=== PATIENT | male | born 1980 | race Caucasian/White ===

== ENCOUNTER 2020-05-14 05:36 | Inpatient (IN) ==
--- NOTE | 2020-05-14 05:52 | Emergency Department Note ---
History of Present Illness General Chief complaint: Syncope Stated complaint: SYNCOPE Time Seen by Provider: 05/14/20 05:45 Source: patient and EMS Mode of arrival: EMS Limitations: altered mental status History of Present Illness Provider complaint: Unresponsive episode Onset (ago): hour(s) Current Pain Intensity: 0 Associated symptoms: + denies other symptoms Treatments prior to arrival: none This is a 40-year-old male brought in by EMS after he had a syncopal event at a [employer]und[employer]at witnessed by a friend. The friend reported to EMS that he was "out of it" for 3 minutes. He did not notice any shaking or seizure-like activity. When police arrived, police told EMS it took him several minutes to wake him up, and he seemed altered so they contacted EMS. EMS reports he was awake and alert on their arrival although does still seem altered. Patient states he remembers sitting down, but does not believe he passed out. Patient denies any recent illness. Patient does state he was recently incarcerated. Patient denies any medical problems or taking any medications. Patient states he smokes weed but denies any other use of recreational drugs or alcohol. Patient was noted by EMS to be mildly hypoxic at 89% was placed on nasal cannula. Patient denies any history of asthma or COPD. Patient does admit to tobacco abuse. Patient denies any recent sick contacts. Patient states he was tested for coronavirus when he was incarcerated. Patient denies any history in him or family members of seizures. Pt seen during a time of high acuity and national emergency pandemic while wea ring PPE. Home Medications Medication Instructions Recorded Confirmed Type No Known Home Medications 02/11/19 05/14/20 History Allergies Allergy/AdvReac Type Severity Reaction Status Date / Time No Known Allergies Allergy Verified 05/14/20 06:20 Past Med/Surg History Medical History (Updated 05/14/20 @ 12:27 by Qasim Quezada MD) Narcotic abuse in remission Surgical History (Updated 05/14/20 @ 10:26 by Leon Diaz) No history of previous surgery Family History Father Dementia Social History (Updated 05/14/20 @ 10:27 by Leon Diaz) Smoking Status: Current every day smoker Tobacco Type: Cigarettes Cigarettes Per Day: 10; Hx Alcohol Use: No Hx Substance Use: Yes Non-Prescribed Medications: Marijuana Last Used Substance: Hours (ago) Last Used Substance Other:: uses THC daily, 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 and A total of 10 systems reviewed and were otherwise negative Physical Exam Vital Signs Vital Signs - 24 hr 05/14/20 06:20 05/14/20 07:34 05/14/20 08:17 Temperature 36.9 C Temperature Source Oral Pulse Rate 115 H Pulse Rate [Apical] 130 H Pulse Rhythm Regular Pulse Strength Normal Respiratory Rate 12 18 Respiratory Effort / Characteristics Non-Labored Spontaneous Respiratory Depth Normal Respiratory Pattern Regular Blood Pressure 126/86 Blood Pressure [Left Arm] 117/104 H Blood Pressure Mean 99 Blood Pressure Mean [Left Arm] 108 Blood Pressure Position Lying Pulse Oximetry 80 L 88 L 93 Oxygen Delivery Method Room Air Room Air Room Air Oxygen Flow Rate 7 Sepsis Recent Fever Within 48 Hours No Sepsis New/Unexplained Change in Mental Status No Sepsis Action Taken by Nursing No Action Required Oxygen Flow Rate - Titration 6 Pulse Oximetry Post Tiitration 96 05/14/20 08:31 05/14/20 10:00 Temperature Temperature Source Pulse Rate Pulse Rate [Apical] 132 H 120 H Pulse Rhythm Pulse Strength Respiratory Rate 20 18 Respiratory Effort / Characteristics Spontaneous Respiratory Depth Respiratory Pattern Blood Pressure Blood Pressure [Left Arm] 148/101 H Blood Pressure Mean Blood Pressure Mean [Left Arm] 116 Blood Pressure Position Pulse Oximetry 91 95 Oxygen Delivery Method Room Air Room Air Oxygen Flow Rate Sepsis Recent Fever Within 48 Hours Sepsis New/Unexplained Change in Mental Status Sepsis Action Taken by Nursing Oxygen Flow Rate - Titration Pulse Oximetry Post Tiitration GENERAL: alert, somnolent appearing, well nourished, no distress, diaphoretic HEAD: nc/at EYE EXAM: normal conjunctiva, PERRL and EOM's grossly intact, no nystagmus OROPHARYNX: no exudate, no erythema, lips, buccal mucosa, and tongue normal and mucous membranes are moist, no evidence of tongue contusion NECK: supple, no nuchal rigidity, no adenopathy, non-tender LUNGS: Clear but decreased to auscultation. Normal chest wall mechanics, no w/r/r, patient desats when asleep on room air to 80%, was placed on oxygen via nasal cannula HEART: no murmurs, S1 normal and S2 normal, sinus tachycardia on telemetry ABDOMEN: abdomen soft, non-tender, normo-active bowel sounds, no masses, no rebound or guarding. BACK: Back is symmetrical on inspection and there is no deformity, no midline tenderness, no CVA tenderness. SKIN: no rashes and no bruising UPPER EXTREMITIES: upper extremities are grossly normal. FROM, nml pulses b/l. No evidence of trauma. LOWER EXTREMITIES: No pitting edema. FROM, nml pulses b/l. No evidence of trauma. NEURO EXAM: Patient oriented but somnolent when not being engaged actively, cranial nerves II-XII grossly intact, normal speech, no gross weakness of arms, no weakness of legs. Gross sensation intact. Course Course 0715: Pt still hypoxic off oxygen, intermittently agitated, still diaphoretic a nd tachycardic. 0820: Pt now with improved oxygenation intermittently, still becomes hypoxic with talking. Still tachycardic. 0840: Patient still tachycardic in the 130s. Patient with slightly improved oxygen saturations after neb treatment although with talking to me at bedside, drops again to 86%. Patient continues to deny any additional drug use other than marijuana. Patient is receiving IV fluids. He continues to intermittently appear restless and agitated. 0900: Discussed with Dr. Diaz. Would like COVID testing added to orders. UDS still pending. Administered Medications Enoxaparin Sodium (Enoxaparin Inj 40 Mg/0.4 Ml Syr) 40 mg SQ Q24H BLADIMIR Stop: 06/13/20 12:15 Last Admin: 05/14/20 13:31 Dose: 40 mg Documented by: [id number] Sodium Chloride (Nss 1000ml) 1,000 mls @ 125 mls/hr IV .Q8H BLADIMIR Stop: 06/13/20 07:44 Last Admin: 05/14/20 20:12 Dose: 125 mls/hr Documented by: [id number] Infusion: 05/14/20 20:12 Dose: 125 mls/hr Documented by: [id number] Admin: 05/14/20 12:56 Dose: 125 mls/hr Documented by: [id number] Infusion: 05/14/20 12:56 Dose: 125 mls/hr Documented by: [id number] Admin: 05/14/20 08:12 Dose: 125 mls/hr Documented by: [id number] Famotidine 20 mg/ Syringe 5 mls @ 2.5 mls/min IV Q12H BLADIMIR Stop: 06/13/20 20:59 Last Admin: 05/14/20 20:12 Dose: 2.5 mls/min Documented by: [id number] Dexmedetomidine HCl 200 mcg/ (Sodium Chloride) 50 mls @ 11.65 mls/hr IV .Q4H18M BLADIMIR; Protocol Stop: 05/18/20 12:29 Last Admin: 05/14/20 22:25 Dose: 0.5 mcg/kg/hr, 11.7 mls/hr Documented by: [id number] Cosigned by: [id number] Titration: 05/14/20 22:25 Dose: 0 mcg/kg/hr, 0 mls/hr Documented by: [id number] Cosigned by: [id number] Admin: 05/14/20 19:45 Dose: 0.5 mcg/kg/hr, 11.7 mls/hr Documented by: [id number] Cosigned by: [id number] Titration: 05/14/20 19:45 Dose: 0.5 mcg/kg/hr, 11.7 mls/hr Documented by: [id number] Cosigned by: [id number] Titration: 05/14/20 18:52 Dose: 0.5 mcg/kg/hr, 11.7 mls/hr Documented by: [id number] Cosigned by: [id number] Titration: 05/14/20 17:59 Dose: 0.5 mcg/kg/hr, 11.7 mls/hr Documented by: [id number] Titration: 05/14/20 17:44 Dose: 0.4 mcg/kg/hr, 9.3 mls/hr Documented by: [id number] Titration: 05/14/20 17:30 Dose: 0.3 mcg/kg/hr, 7 mls/hr Documented by: [id number] Titration: 05/14/20 15:05 Dose: 0.2 mcg/kg/hr, 4.7 mls/hr Documented by: [id number] Titration: 05/14/20 13:21 Dose: 0.3 mcg/kg/hr, 7 mls/hr Documented by: [id number] Admin: 05/14/20 12:55 Dose: 0.2 mcg/kg/hr, 4.7 mls/hr Documented by: [id number] Cosigned by: [id number] Lorazepam (Ativan) 4 mg in 8 mls @ 0.5 mls/min IV Q4H PRN PRN Reason: Agitation Stop: 06/13/20 12:25 Last Admin: 05/14/20 18:02 Dose: 0.5 mls/min Documented by: [id number] Admin: 05/14/20 13:03 Dose: 0.5 mls/min Documented by: [id number] Discontinued Medications Albuterol (Albut/Ipratrop 3mg/0.5mg Neb 3 Ml Vial) 3 ml NEB NOW STA Stop: 05/14/20 07:35 Last Admin: 05/14/20 08:31 Dose: 3 ml Documented by: [id number] Famotidine (Famotidine 20mg/5ml Iv Push) 20 mg IV ONE STA Stop: 05/14/20 09:06 Last Admin: 05/14/20 11:42 Dose: Not Given Documented by: [id number] Lorazepam (Ativan) 1 mg in 2 mls @ 2 mls/min IV Q4H PRN PRN Reason: Agitation Stop: 06/13/20 07:32 Last Admin: 05/14/20 07:42 Dose: 2 mls/min Documented by: [id number] Lorazepam (Ativan) 1 mg in 2 mls @ 2 mls/min IV NOW STA Stop: 05/14/20 08:51 Last Admin: 05/14/20 09:02 Dose: 2 mls/min Documented by: [id number] Lorazepam (Ativan) 1 mg in 2 mls @ 2 mls/min IV NOW STA Stop: 05/14/20 10:08 Last Admin: 05/14/20 10:33 Dose: 2 mls/min Documented by: [id number] Ioversol (Optiray 320 125ml) 89 ml IV ONCE ONE Stop: 05/14/20 08:08 Last Admin: 05/14/20 08:07 Dose: 89 ml Documented by: [id number] Ondansetron HCl (Ondansetron Inj 2 Mg/Ml 2 Ml Vial) 4 mg IV NOW STA Stop: 05/14/20 09:06 Last Admin: 05/14/20 11:42 Dose: Not Given Documented by: [id number] Medical Decision Making Differential Diagnosis Differential diagnoses includes but is not limited to toxic, metabolic, infectious, traumatic, cardiac, neurologic, hematologic, psychiatric and inflammatory etiologies. Medical Records Attestation: I reviewed the patient's medical records. Home Medications Current Medication List: was personally reviewed by me Laboratory Data Attestation: I reviewed the patient's lab results. Result diagrams: 05/14/20 05:58 05/14/20 05:58 Lab Results 05/14/20 05/14/20 05/14/20 Range/Units 05:58 05:58 05:58 WBC 13.77 H (4.8-10.8) K/uL RBC 5.21 (4.7-6.1) M/uL Hgb 15.3 (14.0-18.0) g/dL Hct 46.0 (42-52) % MCV 88.3 (80-100) fL MCH 29.4 (25-34) pg MCHC 33.3 (32-36) g/dL RDW Std Deviation 41.2 (36.4-46.3) fL RDW Coeff of Franc 12.7 (11.5-14.5) % Plt Count 208 (130-400) K/uL MPV 11.5 H (7.4-10.4) fL Immature Gran % (Auto) 0.5 % Neut % (Auto) 86.7 % Lymph % (Auto) 6.5 % [place] % (Auto) 5.8 % Eos % (Auto) 0.4 % Baso % (Auto) 0.1 % Neut # (Auto) 11.93 H (1.4-6.5) K/uL Lymph # (Auto) 0.89 L (1.2-3.4) K/uL [place] # (Auto) 0.80 H (0.11-0.59) K/uL Eos # (Auto) 0.06 (0-0.5) K/uL Baso # (Auto) 0.02 (0-0.2) K/uL Immature Gran # (Auto) 0.07 H (0.00-0.02) K/uL Sodium 139 (136-145) mmol/L Potassium 3.6 (3.5-5.1) mmol/L Chloride 106 (98-107) mmol/L Carbon Dioxide 27 (21-32) mmol/L Anion Gap 5.0 (3-11) BUN 23 H (7-18) mg/dl Creatinine 1.58 H (0.6-1.4) mg/dl Est Cr Clr Drug Dosing 72.2 ml/min Est GFR ( Amer) 61.6 Est GFR (Non-Af Amer) 53.2 BUN/Creatinine Ratio 14.2 (10-20) Glucose 203 H (70-99) mg/dl Estimat Average Glucose mg/dl Hemoglobin A1c (4.5-5.6) % Calcium 8.8 (8.5-10.1) mg/dl Magnesium 2.3 (1.8-2.4) mg/dl Total Bilirubin 0.5 (0.2-1) mg/dl AST 41 H (15-37) U/L ALT 103 H (12-78) U/L Alkaline Phosphatase 91 (45-117) U/L Total Creatine Kinase (39-308) U/L Troponin I < 0.015 (0-0.045) ng/ml NT-Pro-B Natriuret Pep 38 (0-450) pg/ml Total Protein 7.9 (6.4-8.2) gm/dl Albumin 4.1 (3.4-5.0) gm/dl Globulin 3.8 (2.5-4.0) gm/dl Albumin/Globulin Ratio 1.1 (0.9-2) TSH 2.700 (0.300-4.500) uIu/ml Urine Color Urine Appearance (Clear) Urine pH (4.5-7.5) Ur Specific [place] (1.000-1.030) Urine Protein (Negative) Urine Glucose (UA) (Negative) Urine Ketones (Negative) Urine Blood (Negative) Urine Nitrite (Negative) Urine Bilirubin (Negative) Urine Urobilinogen (Negative) Ur Leukocyte Esterase (Negative) Urine WBC (Auto) (0-5) /hpf Urine RBC (Auto) (0-4) /hpf U Hyaline Cast (Auto) (0-5) /lpf U Epithel Cells (Auto) (0-5) /lpf Urine Bacteria (Auto) (Negative) Ur Renal Epithelial Cell Urine Opiates Screen (Neg) Ur Methadone, Qual (Neg) Urine Barbiturates (Neg) Ur Phencyclidine (PCP) (Neg) U Amphetamin/Meth Scrn (Neg) MDMA (Ecstasy) Screen (Neg) U Benzodiazepines Scrn (Neg) Ur Cocaine Metabolite (Neg) U Marijuana (THC) Screen (Neg) Ethyl Alcohol mg/dL (0-3) mg/dl COVID-19 Eval Order SARS-CoV-2, RNA, NAAT (NEGATIVE) 05/14/20 05/14/20 05/14/20 Range/Units 05:58 05:58 06:10 WBC (4.8-10.8) K/uL RBC (4.7-6.1) M/uL Hgb (14.0-18.0) g/dL Hct (42-52) % MCV (80-100) fL MCH (25-34) pg MCHC (32-36) g/dL RDW Std Deviation (36.4-46.3) fL RDW Coeff of Franc (11.5-14.5) % Plt Count (130-400) K/uL MPV (7.4-10.4) fL Immature Gran % (Auto) % Neut % (Auto) % Lymph % (Auto) % [place] % (Auto) % Eos % (Auto) % Baso % (Auto) % Neut # (Auto) (1.4-6.5) K/uL Lymph # (Auto) (1.2-3.4) K/uL [place] # (Auto) (0.11-0.59) K/uL Eos # (Auto) (0-0.5) K/uL Baso # (Auto) (0-0.2) K/uL Immature Gran # (Auto) (0.00-0.02) K/uL Sodium (136-145) mmol/L Potassium (3.5-5.1) mmol/L Chloride (98-107) mmol/L Carbon Dioxide (21-32) mmol/L Anion Gap (3-11) BUN (7-18) mg/dl Creatinine (0.6-1.4) mg/dl Est Cr Clr Drug Dosing ml/min Est GFR ( Amer) Est GFR (Non-Af Amer) BUN/Creatinine Ratio (10-20) Glucose (70-99) mg/dl Estimat Average Glucose 103 mg/dl Hemoglobin A1c 5.2 (4.5-5.6) % Calcium (8.5-10.1) mg/dl Magnesium (1.8-2.4) mg/dl Total Bilirubin (0.2-1) mg/dl AST (15-37) U/L ALT (12-78) U/L Alkaline Phosphatase (45-117) U/L Total Creatine Kinase 366 H (39-308) U/L Troponin I (0-0.045) ng/ml NT-Pro-B Natriuret Pep (0-450) pg/ml Total Protein (6.4-8.2) gm/dl Albumin (3.4-5.0) gm/dl Globulin (2.5-4.0) gm/dl Albumin/Globulin Ratio (0.9-2) TSH (0.300-4.500) uIu/ml Urine Color Urine Appearance (Clear) Urine pH (4.5-7.5) Ur Specific [place] (1.000-1.030) Urine Protein (Negative) Urine Glucose (UA) (Negative) Urine Ketones (Negative) Urine Blood (Negative) Urine Nitrite (Negative) Urine Bilirubin (Negative) Urine Urobilinogen (Negative) Ur Leukocyte Esterase (Negative) Urine WBC (Auto) (0-5) /hpf Urine RBC (Auto) (0-4) /hpf U Hyaline Cast (Auto) (0-5) /lpf U Epithel Cells (Auto) (0-5) /lpf Urine Bacteria (Auto) (Negative) Ur Renal Epithelial Cell Urine Opiates Screen (Neg) Ur Methadone, Qual (Neg) Urine Barbiturates (Neg) Ur Phencyclidine (PCP) (Neg) U Amphetamin/Meth Scrn (Neg) MDMA (Ecstasy) Screen (Neg) U Benzodiazepines Scrn (Neg) Ur Cocaine Metabolite (Neg) U Marijuana (THC) Screen (Neg) Ethyl Alcohol mg/dL < 3.0 (0-3) mg/dl COVID-19 Eval Order SARS-CoV-2, RNA, NAAT (NEGATIVE) 05/14/20 05/14/20 05/14/20 Range/Units 08:30 08:30 09:20 WBC (4.8-10.8) K/uL RBC (4.7-6.1) M/uL Hgb (14.0-18.0) g/dL Hct (42-52) % MCV (80-100) fL MCH (25-34) pg MCHC (32-36) g/dL RDW Std Deviation (36.4-46.3) fL RDW Coeff of Franc (11.5-14.5) % Plt Count (130-400) K/uL MPV (7.4-10.4) fL Immature Gran % (Auto) % Neut % (Auto) % Lymph % (Auto) % [place] % (Auto) % Eos % (Auto) % Baso % (Auto) % Neut # (Auto) (1.4-6.5) K/uL Lymph # (Auto) (1.2-3.4) K/uL [place] # (Auto) (0.11-0.59) K/uL Eos # (Auto) (0-0.5) K/uL Baso # (Auto) (0-0.2) K/uL Immature Gran # (Auto) (0.00-0.02) K/uL Sodium (136-145) mmol/L Potassium (3.5-5.1) mmol/L Chloride (98-107) mmol/L Carbon Dioxide (21-32) mmol/L Anion Gap (3-11) BUN (7-18) mg/dl Creatinine (0.6-1.4) mg/dl Est Cr Clr Drug Dosing ml/min Est GFR ( Amer) Est GFR (Non-Af Amer) BUN/Creatinine Ratio (10-20) Glucose (70-99) mg/dl Estimat Average Glucose mg/dl Hemoglobin A1c (4.5-5.6) % Calcium (8.5-10.1) mg/dl Magnesium (1.8-2.4) mg/dl Total Bilirubin (0.2-1) mg/dl AST (15-37) U/L ALT (12-78) U/L Alkaline Phosphatase (45-117) U/L Total Creatine Kinase (39-308) U/L Troponin I (0-0.045) ng/ml NT-Pro-B Natriuret Pep (0-450) pg/ml Total Protein (6.4-8.2) gm/dl Albumin (3.4-5.0) gm/dl Globulin (2.5-4.0) gm/dl Albumin/Globulin Ratio (0.9-2) TSH (0.300-4.500) uIu/ml Urine Color Yellow Urine Appearance Clear (Clear) Urine pH 6.0 (4.5-7.5) Ur Specific [place] > 1.045 H (1.000-1.030) Urine Protein 1+ H (Negative) Urine Glucose (UA) Negative (Negative) Urine Ketones Negative (Negative) Urine Blood Negative (Negative) Urine Nitrite Negative (Negative) Urine Bilirubin Negative (Negative) Urine Urobilinogen Negative (Negative) Ur Leukocyte Esterase Negative (Negative) Urine WBC (Auto) 1-5 (0-5) /hpf Urine RBC (Auto) 0-4 (0-4) /hpf U Hyaline Cast (Auto) 10-30 H (0-5) /lpf U Epithel Cells (Auto) >30 H (0-5) /lpf Urine Bacteria (Auto) Negative (Negative) Ur Renal Epithelial Cell Not Reportable Urine Opiates Screen Pos H (Neg) Ur Methadone, Qual Neg (Neg) Urine Barbiturates Neg (Neg) Ur Phencyclidine (PCP) Neg (Neg) U Amphetamin/Meth Scrn Pos H (Neg) MDMA (Ecstasy) Screen Pos H (Neg) U Benzodiazepines Scrn Neg (Neg) Ur Cocaine Metabolite Neg (Neg) U Marijuana (THC) Screen Pos H (Neg) Ethyl Alcohol mg/dL (0-3) mg/dl COVID-19 Eval [id number] SARS-[facility]-2, RNA, NAAT (NEGATIVE) 05/14/20 Range/Units 09:20 WBC (4.8-10.8) K/uL RBC (4.7-6.1) M/uL Hgb (14.0-18.0) g/dL Hct (42-52) % MCV (80-100) fL MCH (25-34) pg MCHC (32-36) g/dL RDW Std Deviation (36.4-46.3) fL RDW Coeff of Franc (11.5-14.5) % Plt Count (130-400) K/uL MPV (7.4-10.4) fL Immature Gran % (Auto) % Neut % (Auto) % Lymph % (Auto) % [place] % (Auto) % Eos % (Auto) % Baso % (Auto) % Neut # (Auto) (1.4-6.5) K/uL Lymph # (Auto) (1.2-3.4) K/uL [place] # (Auto) (0.11-0.59) K/uL Eos # (Auto) (0-0.5) K/uL Baso # (Auto) (0-0.2) K/uL Immature Gran # (Auto) (0.00-0.02) K/uL Sodium (136-145) mmol/L Potassium (3.5-5.1) mmol/L Chloride (98-107) mmol/L Carbon Dioxide (21-32) mmol/L Anion Gap (3-11) BUN (7-18) mg/dl Creatinine (0.6-1.4) mg/dl Est Cr Clr Drug Dosing ml/min Est GFR ( Amer) Est GFR (Non-Af Amer) BUN/Creatinine Ratio (10-20) Glucose (70-99) mg/dl Estimat Average Glucose mg/dl Hemoglobin A1c (4.5-5.6) % Calcium (8.5-10.1) mg/dl Magnesium (1.8-2.4) mg/dl Total Bilirubin (0.2-1) mg/dl AST (15-37) U/L ALT (12-78) U/L Alkaline Phosphatase (45-117) U/L Total Creatine Kinase (39-308) U/L Troponin I (0-0.045) ng/ml NT-Pro-B Natriuret Pep (0-450) pg/ml Total Protein (6.4-8.2) gm/dl Albumin (3.4-5.0) gm/dl Globulin (2.5-4.0) gm/dl Albumin/Globulin Ratio (0.9-2) TSH (0.300-4.500) uIu/ml Urine Color Urine Appearance (Clear) Urine pH (4.5-7.5) Ur Specific [place] (1.000-1.030) Urine Protein (Negative) Urine Glucose (UA) (Negative) Urine Ketones (Negative) Urine Blood (Negative) Urine Nitrite (Negative) Urine Bilirubin (Negative) Urine Urobilinogen (Negative) Ur Leukocyte Esterase (Negative) Urine WBC (Auto) (0-5) /hpf Urine RBC (Auto) (0-4) /hpf U Hyaline Cast (Auto) (0-5) /lpf U Epithel Cells (Auto) (0-5) /lpf Urine Bacteria (Auto) (Negative) Ur Renal Epithelial Cell Urine Opiates Screen (Neg) Ur Methadone, Qual (Neg) Urine Barbiturates (Neg) Ur Phencyclidine (PCP) (Neg) U Amphetamin/Meth Scrn (Neg) MDMA (Ecstasy) Screen (Neg) U Benzodiazepines Scrn (Neg) Ur Cocaine Metabolite (Neg) U Marijuana (THC) Screen (Neg) Ethyl Alcohol mg/dL (0-3) mg/dl COVID-19 Eval Order SARS-CoV-2, RNA, NAAT NEGATIVE (NEGATIVE) Imaging Data Radiologist's Impression: CT head: Motion artifact limits evaluation. No evidence of acute intracranial abnor mality or skull fracture. 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 Correlate with priors if available or consider nonemergent MR follow-up. Radiologist:Ilia Anne MD CT ANGIOGRAM OF THE CHEST CLINICAL HISTORY: Syncope. Possible acute pulmonary embolism. Hypoxia. COMPARISON STUDY: Chest x-ray dated 05/14/2020 TECHNIQUE: Following the IV administration of 89 mL of Optiray-320, CT angiogram of the thorax was performed from the thoracic inlet to the lung bases utilizing the pulmonary embolus protocol. Images are reviewed in the axial, sagittal, and coronal planes. IV contrast was administered without complication. MIP imaging was performed. A dose lowering technique was utilized adhering to the principles of ALARA. CT DOSE: 605.98 mGy.cm FINDINGS: No pathologically enlarged axillary mediastinal or hilar lymph nodes were visualized. There was no evidence of thoracic aortic dilatation. There is no convincing evidence of acute pulmonary embolism. The study is significantly degraded due to motion artifact. If symptoms persist, a repeat examination and or correlation with leg ultrasonography is recommended. There are no pleural effusions. There is no lobar consolidation. IMPRESSION: 1. Motion degraded study. 2. No central emboli identified. The study is nondiagnostic for evaluation of peripheral embolic disease 3. No evidence of lobar consolidation 4. Given the technical limitations of the study, if clinical suspicion of pulmonary embolism remains high, a repeat examination and or correlation with leg ultrasonography is recommended. ACT 112: Negative or not required by law. Electronically signed by: Faraz Morales M.D. 05/14/2020 8:19 AM ECG Data Attestation: I personally reviewed and interpreted this ECG as follows: Indication: + tachycardia Rate (beats per minute): 109 Rhythm: + normal sinus ECG Intervals/blocks: + Normal QRS and + Normal QT ECG [place]: + Normal ECG ST segments: + Normal ST segments Blood Pressure Blood Pressure Findings: Normal blood pressure MDM Narrative This is a 40-year-old male who presents after episode of unresponsiveness earlier today, found by EMS to be arousable however tachycardic, tachypneic, and initially hypoxic for them. Patient diaphoretic on arrival, was directable and can answer some questions of orientation, however then at other times seemed confused discussing topics and past events. Patient denied drug or alcohol use although does have a history of such on review of EMR. Patient denies trauma, states he remembers sitting down and thinks he just fell asleep. No evidence of trauma on physical exam. Patient markedly tachycardic here in the 130s, quickly hypoxic on room air especially when falling asleep. Labs are drawn and sent, patient sent for CT of the head. Initial chest x-ray reassuring, however due to persistent episodes of hypoxia and tachycardia, patient ultimately sent for CT angiography of the chest. Patient was given a nebulizer treatment due to history of tobacco abuse which she felt subjectively helped. Patient slowly able to maintain slightly higher oxygen saturations off nasal cannula, however with falling asleep he would still desat so he was kept on oxygen via nasal cannula. Patient continued to be tachycardic. Difficulty infusing IV fluids as patient continued to bend his right arm with the IV was at the AC. Patient appeared restless, intermittently agitated, and was continuously diaphoretic. I have a high suspicion for substance abuse and/or withdrawal at this time. Due to persistent tachycardia, hypoxia, intermittent altered mental status yet, case discussed with hospitalist for additional evaluation and management. Covid test was added at their request. UDS was pending at the time of my discussion for additional inpatient management. Patient was given a total of 2 mg initially in the emergency room to help with anxiety and agitation. This did seem to help slightly, and a as needed order was also placed. I do feel patient will need continued close monitoring due to agitation in addition to abnormal vitals. At this time I have a low suspicion for acute ELECTRIC BLASTING [employer]ER etiology, occult infectious etiology. I do not suspect serotonin syndrome, or anticholinergic toxicity. An order was placed for continuous cardiac monitoring. The monitor shows a rate of _129_ with __sinus tachycardia rhythm. Impression & Plan Episode of unresponsiveness, Acute dyspnea, Hypoxia, Tachycardia, EPIFANIO (acute kidney injury) Discharge Plan Visit Data Chief Complaint: Syncope Stated Complaint: SYNCOPE ED Provider: Yadira Lopez Discharge Problem: Episode of unresponsiveness, Acute dyspnea, Hypoxia, Tachycardia, EPIFANIO (acute kidney injury) Patient Disposition: Admitted As Inpatient Discharge Instructions Interventions: ED Discharge Assessment Last Done: 05/14/20 11:33
[2020-05-14 06:28] LABS: Basophils # (auto) 0.02 K/uL (0-0.2); Basophils % (auto) 0.1 %; Eosinophils # (auto) 0.06 K/uL (0-0.5); Eosinophils % (auto) 0.4 %; Hemoglobin 15.3 g/dL (14.0-18.0); Immature Granulocytes # (auto) 0.07 K/uL (0.00-0.02); Immature Granulocytes % (auto) 0.5 %; Lymphocytes # (auto) 0.89 K/uL (1.2-3.4); Lymphocytes % (auto) 6.5 %; Mean Corpuscular Hemoglobin 29.4 pg (25-34); Mean Corpuscular Hgb Conc 33.3 g/dL (32-36); Mean Corpuscular Volume 88.3 fL (80-100); Mean Platelet Volume 11.5 fL (7.4-10.4); Monocytes % (auto) 5.8 %; Neutrophils # (auto) 11.93 K/uL (1.4-6.5); Neutrophils % (auto) 86.7 %; Platelet Count 208 K/uL (130-400); RDW Coefficient of Variation 12.7 % (11.5-14.5); RDW Standard Deviation 41.2 fL (36.4-46.3); Red Blood Count 5.21 M/uL (4.7-6.1); White Blood Count 13.77 K/uL (4.8-10.8)
[2020-05-14 06:46] LABS: Alanine Aminotransferase 103 U/L (12-78); Albumin Level 4.1 gm/dl (3.4-5.0); Aspartate Aminotransferase 41 U/L (15-37); BUN Creatinine Ratio 14.2 (10-20); Blood Urea Nitrogen 23 mg/dl (7-18); Calcium 8.8 mg/dl (8.5-10.1); Carbon Dioxide 27 mmol/L (21-32); Chloride 106 mmol/L (98-107); Creatinine Clr Calc Pharmacy 72.2 ml/min; Est GFR (African American) 61.6; Est GFR (Non-African American) 53.2; Glucose 203 mg/dl (70-99); Magnesium 2.3 mg/dl (1.8-2.4); Potassium 3.6 mmol/L (3.5-5.1); Sodium 139 mmol/L (136-145)
[2020-05-14 06:57] LABS: Albumin Globulin Ratio 1.1 (0.9-2); Alkaline Phosphatase 91 U/L (45-117); Bilirubin,Total 0.5 mg/dl (0.2-1); Globulin 3.8 gm/dl (2.5-4.0); Total Protein 7.9 gm/dl (6.4-8.2); Troponin I < 0.015 ng/ml (0-0.045)
[2020-05-14] MEDS ORDERED: LORazepam 1 MG/2 ML VIAL IV PRN ×2 (07:33→12:16)
[2020-05-14] MEDS ORDERED: ALBUT/IPRATROP 3MG/0.5MG NEB 3 ML VIAL NEB STA (07:34)
--- NOTE | 2020-05-14 07:48 | CT Scan Report ---
CT head/brain wo con CLINICAL HISTORY: syncope vs seizure COMPARISON STUDY: No previous studies for comparison. TECHNIQUE: Axial CT of the brain is performed from the vertex to the skull base. IV contrast was not administered for this examination. A dose lowering technique was utilized adhering to the principles of ALARA. CT DOSE: 1228.53 mGy.cm FINDINGS: No intra or extra-axial mass lesions are visualized. There is no CT evidence of acute cortical infarc tion. There is no evidence of midline shift. There is no acute hemorrhage. No calvarial fractures ar e visualized. There is significant motion degradation. There is prominent pineal calcification. There is no evidence of pathologic ventricular dilatation. There is no evidence of acute sinusitis IMPRESSION: 1. Motion degraded study 2. Prominent 11 mm pineal calcification. Correlation with prior studies recommended. 3. No acute findings given the limitations of the motion degraded examination. ACT 112: Negative or not required by law. Electronically signed by: Faraz Morales M.D. 05/14/2020 7:46 AM
[2020-05-14] MEDS ORDERED: OPTIRAY 320 125ml IV ONE (08:07)
[2020-05-14] MEDS: SODIUM CHLORIDE 0.9% 1000ML 1,000 ML IV SCH ×3 (08:12→20:12)
--- NOTE | 2020-05-14 08:21 | CT Scan Report ---
CT ANGIOGRAM OF THE CHEST CLINICAL HISTORY: Syncope. Possible acute pulmonary embolism. Hypoxia. COMPARISON STUDY: Chest x-ray dated 05/14/2020 TECHNIQUE: Following the IV administration of 89 mL of Optiray-320, CT angiogram of the thorax was pe rformed from the thoracic inlet to the lung bases utilizing the pulmonary embolus protocol. Images ar e reviewed in the axial, sagittal, and coronal planes. IV contrast was administered without complicat ion. MIP imaging was performed. A dose lowering technique was utilized adhering to the principles of ALARA. CT DOSE: 605.98 mGy.cm FINDINGS: No pathologically enlarged axillary mediastinal or hilar lymph nodes were visualized. There was no evidence of thoracic aortic dilatation. There is no convincing evidence of acute pulmonary embolism. The study is significantly degraded due to motion artifact. If symptoms persist, a repeat examination and or correlation with leg ultrasonogr aphy is recommended. There are no pleural effusions. There is no lobar consolidation. IMPRESSION: 1. Motion degraded study. 2. No central emboli identified. The study is nondiagnostic for evaluation of peripheral embolic dise ase 3. No evidence of lobar consolidation 4. Given the technical limitations of the study, if clinical suspicion of pulmonary embolism remains high, a repeat examination and or correlation with leg ultrasonography is recommended. ACT 112: Negative or not required by law. Electronically signed by: Faraz Morales M.D. 05/14/2020 8:19 AM
--- NOTE | 2020-05-14 08:40 | XRay Report ---
XR chest 1V portable CLINICAL HISTORY: sob, hypoxia COMPARISON STUDY: 11/22/2018 FINDINGS: The cardiac and mediastinal contours are normal. There is no evidence of focal pulmonary co nsolidation. There is no evidence of failure. No pleural effusions are visualized.[ A 9 mm rounded op acity at the right lung base, likely represents a nipple shadow. IMPRESSION: No active disease in the chest. ACT 112: Negative or not required by law. Electronically signed by: Faraz Morales M.D. 05/14/2020 8:39 AM
[2020-05-14 08:42] LABS: Appearance Urine Clear (Clear); Bacteria Urine Automated Negative (Negative); Bilirubin Urine Negative (Negative); Blood Urine Negative (Negative); Color Urine Yellow; Epithelial Cell Urine Auto >30 /lpf (0-5); Glucose Urine UA Negative (Negative); Ketones Urine Negative (Negative); Leukocyte Esterase Urine Negative (Negative); Nitrite Urine Negative (Negative); Protein Urine 1+ (Negative); RBC Urine Automated 0-4 /hpf (0-4); Specific Gravity Urine > 1.045 (1.000-1.030); Urobilinogen Urine Negative (Negative)
[2020-05-14] MEDS ORDERED: LORazepam 1 MG/2 ML VIAL IV STA ×2 (08:50→10:07)
[2020-05-14] MEDS ORDERED: ONDANSETRON INJ 2 MG/ML 2 ML VIAL IV STA (09:05)
[2020-05-14] MEDS ORDERED: FAMOTIDINE 20MG/5ML IV PUSH IV STA (09:05)
[2020-05-14 09:31] LABS: Amphetamines+Metham, Urine Pos (Neg); Barbiturates, Urine Neg (Neg); Benzodiazepine, Urine Neg (Neg); Cocaine, Urine Neg (Neg); MDMA (Ecstacy), Urine Pos (Neg); Methadone, Urine Neg (Neg); Opiate, Urine Pos (Neg); Phencyclidine, Urine Neg (Neg)
--- NOTE | 2020-05-14 10:39 | History & Physical Report ---
Date of Service May 14, 2020 Assessment & Plan (1) Toxic encephalopathy: Suspect that presentation is due to polysubstance abuse / ingestion as tox screen shows TCH, meth, MDMA, and opiates. Diaphoresis, confusion, tachycardia, etc c/w such. Very agitated and confused in ER, requiring multiple doses of IV ativan for sedation. I am concerned he is unsafe for the PCU and I have asked Dr Quezada from ICU to consult. He may need a continuous infusion of sedative - defer that decision to Dr Quezada. Keep NPO. IVF. IV H2 ju. Ativan q1h prn. Await CPK - r/o rhabdomyolysis. Telemetry. (2) Polysubstance abuse: As noted above. History of narcotic abuse in the past per records. History of past incarceration - exact dates uncertain. PDMP does not show any prescriptions for controlled substances. No benzos on tox screen. At risk of withdrawal if illicit opiate use is chronic. Supportive care. (3) Hypoxia: Patient falls asleep easily during the exam, and with such he desaturates. Hypoventilation in setting of altered mental status. He could have aspirated during his altered MS and recent emesis spell but lungs are clear and CTA is negative (although are there bibasilar infiltrates?). COVID-19 negative. Continue to monitor; provide NC O2 as needed. (4) EPIFANIO (acute kidney injury): Hydrate, repeat BMP am. Suspect due to ingestion and/or poor oral intake. (5) History of narcotic addiction: Noted. (6) Transaminitis: In light of illicit drug use strongly consider HepB and HepC testing. Could be from his drug use. Recheck LFTs am. COVID-19 testing negative. (7) DVT prophylaxis: lovenox 40mg daily admitting patient to ICU care d/w Dr Quezada History of Present Illness Chief Complaint: altered mental status Primary Care Provider: NO PCP 40yo male with no PMH who presents via the local police due to altered mental status. The patient was significantly altered during my bedside visit and his history was very confusing to follow. He could not recount any details of the last 12-24 hours. He mentioned something about getting a car for his cousin going to [facility] yesterday (??). Because of the limited history most historical information is gained from the ER record. Apparently he was at a local laundromat and a friend found him significantly altered. This lasted several minutes. No seizure activity seen. Police were summoned, and upon their arrival he was somnolent and confused. By the time of ER arrival he was awake and talking but significantly altered, agitated, and moving constantly on the bed. He needed multiple doses of ativan in the ER to remain comfortable. He apparently vomited 1 time. He was been hypoxic, intermittently requiring oxygen. By report he was recently incarcerated in [facility] but he states that was in October 2019. He reports nasal congestion for 3 days and chronic cough for months but states "I don't feel sick." He has a roommate but that person has not been ill. The roommate apparently cleans laundromats and he usually goes with that person to help. During my evaluation he was constantly rubbing his hair and face, jerking on the bed, was restless, and could not sit still. He asked me "do you think I have bipolar?" Allergies Allergy/AdvReac Type Severity Reaction Status Date / Time No Known Allergies Allergy Verified 05/14/20 06:20 Home Medications Medication Instructions Recorded Confirmed Type No Known Home Medications 02/11/19 05/14/20 History Past Med/Surg History Medical History (Updated 05/14/20 @ 10:32 by Leon Diaz) Narcotic abuse in remission Surgical History (Updated 05/14/20 @ 10:26 by Leon Diaz) No history of previous surgery Family History Father Dementia Social History (Updated 05/14/20 @ 10:27 by Leon Diaz) Smoking Status: Current every day smoker Tobacco Type: Cigarettes Hx Alcohol Use: No Hx Substance Use: Yes Non-Prescribed Medications: Marijuana Last Used Substance: Hours (ago) Last Used Substance Other:: uses THC daily; denies other drug use Preferred Language: Maltese marital status: Single Current Living Situation: Other Current Living Situation Comment: has roommate current occupational status: unemployed How many Children do You have: 0 Feels Safe at Home: Yes Review of Systems Constitutional: no fever Ear, Nose, Mouth, Throat: + nasal congestion; no sore throat no loss of taste or smell Respiratory: + cough; no dyspnea Cardiovascular: no chest pain Gastrointestinal: + nausea and + vomiting; no abdominal pain and no diarrhea/loose stools Genitourinary: no dysuria Musculoskeletal: no myalgia Integumentary: no rash Neurologic: + restless legs Psychiatric: + irritability Endocrine: no diabetes Physical Exam Constitutional: + acute distress (restless, significantly altered ), + intoxi cated appearing, + disheveled and + diaphoretic Eyes: + anicteric sclerae and PERRL ENMT: Mouth: + oropharynx abnormality (significant erythema of palate and posterior throat) Neck: trachea midline, no thyromegaly Respiratory: normal respiratory effort, lungs clear to auscultation no respiratory distress Cardiovascular: Rate/Rhythm: regular rhythm and + tachycardic Heart Sounds: normal S1 and normal S2; no murmur Vessels: posterior tibial pulses present and dorsalis pedis pulses present; no JVD Extremities: no edema Gastrointestinal (Abdomen): normal bowel sounds, soft, nontender, no hepatosplenomegaly Musculoskeletal: no cyanosis or clubbing, extremities motor strength 5/5 Skin: no rashes, warm and dry scattered scratch liao on arms; diaphoretic Neurologic: myoclonic jerking intermittently; brisk reflexes b/l arms/legs; restless; altered mental status; strength 5/5 x 4 exts Psychiatric: Orientation: oriented to person; + not alert, + not oriented to place and + not oriented to time Results & Data Results & Data ([facility]) Vital Signs (Past 12 Hours) Vital Signs Temp Pulse Pulse Resp BP BP Pulse Ox 05/14/20 08:31 132 H 20 91 05/14/20 08:17 93 05/14/20 07:34 130 H 18 117/104 H 88 L 05/14/20 06:20 36.9 C 115 H 12 126/86 80 L Laboratory Results Laboratory Results - last 24 hr 05/14/20 05/14/20 05/14/20 05:58 05:58 05:58 WBC 13.77 H RBC 5.21 Hgb 15.3 Hct 46.0 MCV 88.3 MCH 29.4 MCHC 33.3 RDW Std Deviation 41.2 RDW Coeff of Franc 12.7 Plt Count 208 MPV 11.5 H Immature Gran % (Auto) 0.5 Neut % (Auto) 86.7 Lymph % (Auto) 6.5 [place] % (Auto) 5.8 Eos % (Auto) 0.4 Baso % (Auto) 0.1 Neut # (Auto) 11.93 H Lymph # (Auto) 0.89 L [place] # (Auto) 0.80 H Eos # (Auto) 0.06 Baso # (Auto) 0.02 Immature Gran # (Auto) 0.07 H Sodium 139 Potassium 3.6 Chloride 106 Carbon Dioxide 27 Anion Gap 5.0 BUN 23 H Creatinine 1.58 H Est Cr Clr Drug Dosing 72.2 Est GFR ( Amer) 61.6 Est GFR (Non-Af Amer) 53.2 BUN/Creatinine Ratio 14.2 Glucose 203 H Calcium 8.8 Magnesium 2.3 Total Bilirubin 0.5 AST 41 H ALT 103 H Alkaline Phosphatase 91 Total Creatine Kinase Troponin I < 0.015 NT-Pro-B Natriuret Pep 38 Total Protein 7.9 Albumin 4.1 Globulin 3.8 Albumin/Globulin Ratio 1.1 TSH 2.700 Urine Color Urine Appearance Urine pH Ur Specific [place] Urine Protein Urine Glucose (UA) Urine Ketones Urine Blood Urine Nitrite Urine Bilirubin Urine Urobilinogen Ur Leukocyte Esterase Urine WBC (Auto) Urine RBC (Auto) U Hyaline Cast (Auto) U Epithel Cells (Auto) Urine Bacteria (Auto) Ur Renal Epithelial Cell Urine Opiates Screen U Codeine Confrm GC/MS Ur Morphine (GC/MS) Ur Hydrocodone (GC/MS) Ur Norhydrocodone Ur Noroxycodone Urine Oxycodone (GC/MS) U Oxymorphone GC/MS Ur Methadone, Qual Ur Hydromorphone (GC/MS) Urine Barbiturates Ur Phencyclidine (PCP) U Amphetamines Confirm U Amphetamin/Meth Scrn U Methamphetamin Confrm Urine MDEA MDMA (Ecstasy) Screen MDMA Urine MDMA U Benzodiazepines Scrn Ur Cocaine Metabolite U Marijuana (THC) Screen U Marijuana THC Carboxy Drug Screen Comment Ethyl Alcohol mg/dL COVID-19 Eval Order SARS-CoV-2, RNA, NAAT 05/14/20 05/14/20 05/14/20 05:58 06:10 08:30 WBC RBC Hgb Hct MCV MCH MCHC RDW Std Deviation RDW Coeff of Franc Plt Count MPV Immature Gran % (Auto) Neut % (Auto) Lymph % (Auto) [place] % (Auto) Eos % (Auto) Baso % (Auto) Neut # (Auto) Lymph # (Auto) [place] # (Auto) Eos # (Auto) Baso # (Auto) Immature Gran # (Auto) Sodium Potassium Chloride Carbon Dioxide Anion Gap BUN Creatinine Est Cr Clr Drug Dosing Est GFR ( Amer) Est GFR (Non-Af Amer) BUN/Creatinine Ratio Glucose Calcium Magnesium Total Bilirubin AST ALT Alkaline Phosphatase Total Creatine Kinase 366 H Troponin I NT-Pro-B Natriuret Pep Total Protein Albumin Globulin Albumin/Globulin Ratio TSH Urine Color Yellow Urine Appearance Clear Urine pH 6.0 Ur Specific [place] > 1.045 H Urine Protein 1+ H Urine Glucose (UA) Negative Urine Ketones Negative Urine Blood Negative Urine Nitrite Negative Urine Bilirubin Negative Urine Urobilinogen Negative Ur Leukocyte Esterase Negative Urine WBC (Auto) 1-5 Urine RBC (Auto) 0-4 U Hyaline Cast (Auto) 10-30 H U Epithel Cells (Auto) >30 H Urine Bacteria (Auto) Negative Ur Renal Epithelial Cell Not Reportable Urine Opiates Screen U Codeine Confrm GC/MS Ur Morphine (GC/MS) Ur Hydrocodone (GC/MS) Ur Norhydrocodone Ur Noroxycodone Urine Oxycodone (GC/MS) U Oxymorphone GC/MS Ur Methadone, Qual Ur Hydromorphone (GC/MS) Urine Barbiturates Ur Phencyclidine (PCP) U Amphetamines Confirm U Amphetamin/Meth Scrn U Methamphetamin Confrm Urine MDEA MDMA (Ecstasy) Screen MDMA Urine MDMA U Benzodiazepines Scrn Ur Cocaine Metabolite U Marijuana (THC) Screen U Marijuana THC Carboxy Drug Screen Comment Ethyl Alcohol mg/dL < 3.0 COVID-19 Eval Order SARS-CoV-2, RNA, NAAT 05/14/20 05/14/20 05/14/20 08:30 08:30 09:20 WBC RBC Hgb Hct MCV MCH MCHC RDW Std Deviation RDW Coeff of Franc Plt Count MPV Immature Gran % (Auto) Neut % (Auto) Lymph % (Auto) [place] % (Auto) Eos % (Auto) Baso % (Auto) Neut # (Auto) Lymph # (Auto) [place] # (Auto) Eos # (Auto) Baso # (Auto) Immature Gran # (Auto) Sodium Potassium Chloride Carbon Dioxide Anion Gap BUN Creatinine Est Cr Clr Drug Dosing Est GFR ( Amer) Est GFR (Non-Af Amer) BUN/Creatinine Ratio Glucose Calcium Magnesium Total Bilirubin AST ALT Alkaline Phosphatase Total Creatine Kinase Troponin I NT-Pro-B Natriuret Pep Total Protein Albumin Globulin Albumin/Globulin Ratio TSH Urine Color Urine Appearance Urine pH Ur Specific [place] Urine Protein Urine Glucose (UA) Urine Ketones Urine Blood Urine Nitrite Urine Bilirubin Urine Urobilinogen Ur Leukocyte Esterase Urine WBC (Auto) Urine RBC (Auto) U Hyaline Cast (Auto) U Epithel Cells (Auto) Urine Bacteria (Auto) Ur Renal Epithelial Cell Urine Opiates Screen Pos H U Codeine Confrm GC/MS Pending Ur Morphine (GC/MS) Pending Ur Hydrocodone (GC/MS) Pending Ur Norhydrocodone Pending Ur Noroxycodone Pending Urine Oxycodone (GC/MS) Pending U Oxymorphone GC/MS Pending Ur Methadone, Qual Neg Ur Hydromorphone (GC/MS) Pending Urine Barbiturates Neg Ur Phencyclidine (PCP) Neg U Amphetamines Confirm Pending U Amphetamin/Meth Scrn Pos H U Methamphetamin Confrm Pending Urine MDEA Pending MDMA (Ecstasy) Screen Pos H MDMA Pending Urine MDMA Pending U Benzodiazepines Scrn Neg Ur Cocaine Metabolite Neg U Marijuana (THC) Screen Pos H U Marijuana THC Carboxy Pending Drug Screen Comment Pending Ethyl Alcohol mg/dL COVID-19 Eval [facility] SARS-CoV-2, RNA, NAAT 05/14/20 09:20 WBC RBC Hgb Hct MCV MCH MCHC RDW Std Deviation RDW Coeff of Franc Plt Count MPV Immature Gran % (Auto) Neut % (Auto) Lymph % (Auto) [place] % (Auto) Eos % (Auto) Baso % (Auto) Neut # (Auto) Lymph # (Auto) [place] # (Auto) Eos # (Auto) Baso # (Auto) Immature Gran # (Auto) Sodium Potassium Chloride Carbon Dioxide Anion Gap BUN Creatinine Est Cr Clr Drug Dosing Est GFR ( Amer) Est GFR (Non-Af Amer) BUN/Creatinine Ratio Glucose Calcium Magnesium Total Bilirubin AST ALT Alkaline Phosphatase Total Creatine Kinase Troponin I NT-Pro-B Natriuret Pep Total Protein Albumin Globulin Albumin/Globulin Ratio TSH Urine Color Urine Appearance Urine pH Ur Specific [place] Urine Protein Urine Glucose (UA) Urine Ketones Urine Blood Urine Nitrite Urine Bilirubin Urine Urobilinogen Ur Leukocyte Esterase Urine WBC (Auto) Urine RBC (Auto) U Hyaline Cast (Auto) U Epithel Cells (Auto) Urine Bacteria (Auto) Ur Renal Epithelial Cell Urine Opiates Screen U Codeine Confrm GC/MS Ur Morphine (GC/MS) Ur Hydrocodone (GC/MS) Ur Norhydrocodone Ur Noroxycodone Urine Oxycodone (GC/MS) U Oxymorphone GC/MS Ur Methadone, Qual Ur Hydromorphone (GC/MS) Urine Barbiturates Ur Phencyclidine (PCP) U Amphetamines Confirm U Amphetamin/Meth Scrn U Methamphetamin Confrm Urine MDEA MDMA (Ecstasy) Screen MDMA Urine MDMA U Benzodiazepines Scrn Ur Cocaine Metabolite U Marijuana (THC) Screen U Marijuana THC Carboxy Drug Screen Comment Ethyl Alcohol mg/dL COVID-19 Eval Order SARS-CoV-2, RNA, NAAT NEGATIVE Diagnostic Findings 1. CTA chest - no PEs. Infiltrates bases b/l? 2. cxr - wnl 3. CT head - IMPRESSION: 1. Motion degraded study 2. Prominent 11 mm pineal calcification. Correlation with prior studies recommended. 3. No acute findings given the limitations of the motion degraded examination. 4. EKG - my reading - sinus tach, no ST changes Code Status & VTE Plan Code Status full VTE Prophylaxis Plan VTE Prophylaxis will be ordered: Yes PG Care Time/CCT Total # of Minutes Spent Total Time Spent with Patient: Total time spent is greater than 50% in coordination of care (as documented) at patient's floor/unit and/or counseling patient: Coding Level of Care Code 31793 Initial Inpt Care Lvl 3 Diagnoses Toxic encephalopathy G92 Polysubstance abuse F19.10 Hypoxia R09.02 EPIFANIO (acute kidney injury) N17.9 History of narcotic addiction F11.21 Transaminitis R74.01 DVT prophylaxis Z29.9
[2020-05-14] MEDS ORDERED: ICU PROTOCOL FOR HYPERGLYCEMIA PRN (12:16)
[2020-05-14] MEDS ORDERED: ONDANSETRON INJ 2 MG/ML 2 ML VIAL IV PRN (12:16)
[2020-05-14] MEDS ORDERED: STAT IV Infusion **Titration per Protocol STA (12:24)
--- NOTE | 2020-05-14 12:34 | Critical Care Consultation ---
Date of Consultation May 14, 2020 Assessment & Plan (1) Toxic encephalopathy: CT chest 05/14/2020 personally reviewed:Mild basilar atelectasis of the lower lobes, no mediastinal lymphadenopathy. EKG 05/14/2020: Sinus tachycardia, normal axis, no ST-T wave changes appreciated, QTC 444 --Metabolic encephalopathy CT head 05/14/2020: No acute findings. Prominent 11 mm pineal calcification. Likely secondary to polysubstance abuse UDS is positive for opiates, amphetamines, ecstasy as well as marijuana TSH within normal limit. Patient is restless and agitated as well Continue with benzodiazepine to keep the patient RASS -1 We will start the patient on Precedex as well. If the patient gets very agitated and not controlled by the above measures will intubate the patient. -- EPIFANIO Monitor BUN/creatinine Avoid nephrotoxic medications Strict ins and outs --Transaminitis Likely from overdose Patient also has history of hep C Monitor --Elevated CPK Likely again from drug use Give IV fluids Monitor --History of hepatitis C Untreated --Polysubstance abuse Patient will definitely benefit from a rehab --Prophylaxis VTE: Lovenox GI: Pepcid Lines: Peripheral Diet: N.p.o. Plan: Keep patient RASS -1. Aspiration precautions If there is any severe agitation where patient will be at risk to himself as well as the medical staff will intubate the patient. Leukocytosis is likely reactive. No need for antibiotics. I have personally spent 61 minutes of critical care time in the direct management of this patient. This is a life/limb threatening event. This includes time spent evaluating patient, direct bedside care, chart review, placing orders, interpretation of diagnostic studies, discussion with consultants, patient, and family members, as well as other required patient management activities. This time is exclusive of all separately billable procedures, and teaching time and separate from and in addition to any other critical care service time. Please note the above document was generated using voice recognition software. It may contain grammatical, syntax or spelling errors. (2) EPIFANIO (acute kidney injury): (3) Polysubstance abuse: (4) Hepatitis C: History of Present Illness Attending Physician: Leon Diaz History of Present Illness 40-year-old male with past medical history of drug abuse, hepatitis C was brought into the hospital but by the local police due to altered mental status. ICU was called as in the ED patient was very agitated restless and they gave him Ativan but he was still restless and they wanted close observation and higher sedation if need be. In the ICU patient was still restless but answering all the questions appropriately. At the time of examination patient denies any chest pain, no headache, no nausea, no vomiting. No blurry vision. No nausea or vomiting. He seem to have this flights of ideas/thoughts. He was worried about his younger brother who recently had an accident and how we wanted to get him help. He did confess to doing marijuana, meth as well as heroin today. He is an IV drug abuser and uses left antecubital fossa for injection. Allergies Allergy/AdvReac Type Severity Reaction Status Date / Time No Known Allergies Allergy Verified 05/14/20 06:20 Home Medications Medication Instructions Recorded Confirmed Type No Known Home Medications 02/11/19 05/14/20 History Patient History Medical History (Updated 05/14/20 @ 12:27 by Qasim Quezada MD) Narcotic abuse in remission Surgical History (Updated 05/14/20 @ 10:26 by Leon Diaz) No history of previous surgery Family History Father Dementia Social History (Updated 05/14/20 @ 10:27 by Leon Diaz) Smoking Status: Current every day smoker Tobacco Type: Cigarettes Cigarettes Per Day: 10; Hx Alcohol Use: No Hx Substance Use: Yes Non-Prescribed Medications: Marijuana Last Used Substance: Hours (ago) Last Used Substance Other:: uses THC daily, admitted to methamphetamine use today Preferred Language: [place]dean Communication Ability: confusion [employer] Required: No Beliefs That Will Affect Care: None marital status: Single Current Living Situation: Other Current Living Situation Comment: has roommate current occupational status: unemployed How many Children do You have: 0 Feels Safe at Home: Yes Assistive Devices: None Review of Systems Review of Systems: All systems reviewed & are unremarkable except as noted in HPI & below Physical Exam Physical Exam: Constitutional: No acute distress HEENT: EOMI, PERRLA Respiratory system: Good air entry bilaterally, no wheeze, no rhonchi, no crackles CVS: S1-S2 positive, no murmurs or gallops Abdomen: Soft, nontender, nondistended, positive bowel sounds x4 Extremities: +2 pulses bilaterally radialis/ dorsalis pedis, no cyanosis, no edema Neuro: Awake alert oriented x3 Psych: Restless mood G/U: No Lew Skin: no rashes, warm and dry Lymphatic: no cervical or axillary lymphadenopathy Results & Data Results & [facility] ([facility]) Vital Signs (Past 12 Hours) Vital Signs Temp Pulse Pulse Resp BP BP Pulse Ox 05/14/20 10:00 120 H 18 148/101 H 95 05/14/20 08:31 132 H 20 91 05/14/20 08:17 93 05/14/20 07:34 130 H 18 117/104 H 88 L 05/14/20 06:20 36.9 C 115 H 12 126/86 80 L 05/14/20 05:58 05/14/20 05:58 Coding Level of Care Code Critical Care 1st 30-74 mins Diagnoses Toxic encephalopathy G92 EPIFANIO (acute kidney injury) N17.9 Polysubstance abuse F19.10 Hepatitis C B19.20 Time Spent (min) 61
[2020-05-14 12:40] LABS: Estimated Average Glucose 103 mg/dl; Hemoglobin A1C 5.2 % (4.5-5.6)
[2020-05-14] MEDS: DEXMEDETOMIDINE HCL 200 MCG in SODIUM CHLORIDE 0.9% 48 ML IV SCH ×3 (12:55→22:25)
[2020-05-14] MEDS: LORazepam 4 MG/8 ML VIAL IV PRN ×2 (13:03→18:02)
[2020-05-14] MEDS: ENOXAPARIN INJ 40 MG/0.4 ML SYR SQ SCH (13:31)
[2020-05-14] MEDS: FAMOTIDINE 20 MG in SYRINGE 3 ML IV SCH (20:12)
[2020-05-15] MEDS: LORazepam 4 MG/8 ML VIAL IV PRN (02:06)
[2020-05-15] MEDS: DEXMEDETOMIDINE HCL 200 MCG in SODIUM CHLORIDE 0.9% 48 ML IV SCH ×3 (02:06→05:55)
[2020-05-15] MEDS: SODIUM CHLORIDE 0.9% 1000ML 1,000 ML IV SCH (04:20)
[2020-05-15 05:02] LABS: Basophils # (auto) 0.01 K/uL (0-0.2); Basophils % (auto) 0.1 %; Eosinophils # (auto) 0.06 K/uL (0-0.5); Eosinophils % (auto) 0.7 %; Hematocrit (blood only) 41.1 % (42-52); Hemoglobin 13.4 g/dL (14.0-18.0); Immature Granulocytes # (auto) 0.01 K/uL (0.00-0.02); Immature Granulocytes % (auto) 0.1 %; Lymphocytes # (auto) 2.02 K/uL (1.2-3.4); Lymphocytes % (auto) 23.8 %; Mean Corpuscular Hemoglobin 29.1 pg (25-34); Mean Corpuscular Hgb Conc 32.6 g/dL (32-36); Mean Corpuscular Volume 89.2 fL (80-100); Mean Platelet Volume 11.7 fL (7.4-10.4); Monocytes # (auto) 0.64 K/uL (0.11-0.59); Monocytes % (auto) 7.6 %; Neutrophils # (auto) 5.73 K/uL (1.4-6.5); Neutrophils % (auto) 67.7 %; Platelet Count 191 K/uL (130-400); RDW Coefficient of Variation 12.9 % (11.5-14.5); RDW Standard Deviation 41.4 fL (36.4-46.3); Red Blood Count 4.61 M/uL (4.7-6.1); White Blood Count 8.47 K/uL (4.8-10.8)
[2020-05-15 05:35] LABS: Albumin Level 3.3 gm/dl (3.4-5.0); BUN Creatinine Ratio 19.4 (10-20); Bilirubin Direct 0.2 mg/dl (0-0.2); Calcium 8.3 mg/dl (8.5-10.1); Creatinine Clr Calc Pharmacy 93.3 ml/min; Est GFR (African American) 85.9; Est GFR (Non-African American) 74.1; Magnesium 2.3 mg/dl (1.8-2.4); Potassium 4.1 mmol/L (3.5-5.1); Total Protein 6.5 gm/dl (6.4-8.2)
--- NOTE | 2020-05-15 06:29 | Electrocardiogram Report ---
Test Reason : Blood Pressure : / mmHG Vent. Rate : 109 BPM Atrial Rate : 109 BPM P-R Int : 124 ms QRS Dur : 080 ms QT Int : 330 ms P-R-T Axes : 048 066 027 degrees QTc Int : 444 ms Sinus tachycardia Possible Left atrial enlargement Borderline ECG When compared with ECG of 22-NOV-2018 21:54, No significant change was found Confirmed by Jacques Lalnos ([id number]) on 05/15/2020 6:29:23 AM Referred By: Confirmed By:Jacques Llanos
[2020-05-15] MEDS: FAMOTIDINE 20 MG in SYRINGE 3 ML IV SCH (09:16)
--- NOTE | 2020-05-15 11:02 | Critical Care Progress Note ---
Date of Service May 15, 2020 Assessment & Plan (1) Toxic encephalopathy: CT chest 05/14/2020 personally reviewed:Mild basilar atelectasis of the lower lobes, no mediastinal lymphadenopathy. EKG 05/14/2020: Sinus tachycardia, normal axis, no ST-T wave changes appreciated, QTC 444 --Metabolic encephalopathy CT head 05/14/2020: No acute findings. Prominent 11 mm pineal calcification. Likely secondary to polysubstance abuse UDS is positive for opiates, amphetamines, ecstasy as well as marijuana TSH within normal limit. Patient is restless and agitated as well Continue with benzodiazepine to keep the patient RASS -1 On Precedex If the patient gets very agitated and not controlled by the above measures will intubate the patient. -- EPIFANIO Improved Monitor BUN/creatinine Avoid nephrotoxic medications Strict ins and outs --Transaminitis Trending down Likely from overdose Patient also has history of hep C Monitor --Elevated CPK Likely again from drug use Continue with Monitor --History of hepatitis C Untreated --Polysubstance abuse Patient will definitely benefit from a rehab --Prophylaxis VTE: Lovenox GI: Pepcid Lines: Peripheral Diet: N.p.o. Plan: In/out: +2.1 L, urine output 1 L Titrate off Precedex today. Continue with benzodiazepine as needed If the patient is doing well off Precedex drip he can be downgraded to a medical floor. Patient will benefit from social work support. Recommend HIV testing if not done before. I have personally spent 35 minutes of critical care time in the direct management of this patient. This is a life/limb threatening event. This includes time spent evaluating patient, direct bedside care, chart review, placing orders, interpretation of diagnostic studies, discussion with consultants, patient, and family members, as well as other required patient management activities. This time is exclusive of all separately billable procedures, and teaching time and separate from and in addition to any other critical care service time. Please note the above document was generated using voice recognition software. It may contain grammatical, syntax or spelling errors. (2) EPIFANIO (acute kidney injury): (3) Polysubstance abuse: (4) Hepatitis C: Admission and Anticipated Discharge Date Admission Date: May 14, 2020 Subjective Patient seen and examined at bedside. No acute distress, no adverse events overnight. Patient was on Precedex 0.5 the time of examination. He was RASS -1. Denies any chest pain, no shortness of breath, no headache, no nausea, no vomiting. Review of Systems Review of Systems: All systems reviewed & are unremarkable except as noted in Subjective Physical Exam Physical Exam: Constitutional: No acute distress HEENT: EOMI, PERRLA Respiratory system: Good air entry bilaterally, no wheeze, no rhonchi, no crackles CVS: S1-S2 positive, no murmurs or gallops Abdomen: Soft, nontender, nondistended, positive bowel sounds x4 Extremities: +2 pulses bilaterally radialis/ dorsalis pedis, no cyanosis, no edema Neuro: Awake alert oriented x3, RASS -1 Psych: Normal mood and affect G/U: No Lew Skin: no rashes, warm and dry Lymphatic: no cervical or axillary lymphadenopathy Results & Data Results & Data ([facility]) Vital Signs (Past 12 Hours) Vital Signs Temp Pulse Resp BP Pulse Ox 05/15/20 10:04 74 17 104/66 97 05/15/20 10:00 86 14 97 05/15/20 09:30 71 16 94 05/15/20 09:04 72 14 110/59 L 95 05/15/20 09:00 75 15 93 05/15/20 08:53 84 15 113/69 97 05/15/20 08:30 74 13 97 05/15/20 08:00 89 16 98 05/15/20 07:30 71 16 99 05/15/20 07:04 70 13 102/58 L 99 05/15/20 07:00 69 17 99 05/15/20 06:30 70 15 99 05/15/20 06:04 77 15 116/62 99 05/15/20 05:04 69 15 116/61 99 05/15/20 04:20 36.6 C 05/15/20 04:07 87 13 83/50 L 100 05/15/20 04:04 72 15 75/55 L 99 05/15/20 03:04 78 16 80/53 L 96 05/15/20 02:04 88 15 100/60 92 05/15/20 01:04 91 H 16 110/69 97 05/15/20 00:04 104 H 17 104/87 99 05/14/20 23:59 36.7 C 05/14/20 23:03 88 14 102/68 93 05/15/20 04:11 05/15/20 04:11 Coding Level of Care Code Critical Care 1st 30-74 mins Diagnoses Toxic encephalopathy G92 EPIFANIO (acute kidney injury) N17.9 Polysubstance abuse F19.10 Hepatitis C B19.20 Time Spent (min) 35
[2020-05-15] MEDS: ENOXAPARIN INJ 40 MG/0.4 ML SYR SQ SCH (11:57)
[2020-05-20 10:36] LABS: Amphetamine Urine, Confirm 2600 ng/mL (<250); Codeine Urine NEGATIVE ng/mL (<50); Hydrocodone Urine NEGATIVE ng/mL (<50); Hydromor Urine NEGATIVE ng/mL (<50); MDA negative; MDEA negative; MDMA (Ecstasy) Urine, Confirm negative; Marijuana Quant, GCMS Urine 260 ng/mL (<5); Methamphetamine, Ur Confirm >15000 ng/mL (<250); Morphine Urine 383 ng/mL (<50); Norhydrocodone Conf Ur NEGATIVE ng/mL (<50); Noroxycodone Urine NEGATIVE ng/mL (<50); Oxycodone Urine NEGATIVE ng/mL (<50); Oxymorph Urine NEGATIVE ng/mL (<50)
--- NOTE | 2020-05-22 23:16 | Discharge Summary ---
Date of Service May 15, 2020 Admission HPI Per Admitting Provider 40yo male with no PMH who presents via the local police due to altered mental status. The patient was significantly altered during my bedside visit and his history was very confusing to follow. He could not recount any details of the last 12-24 hours. He mentioned something about getting a car for his cousin going to [facility] yesterday (??). Because of the limited history most historical information is gained from the ER record. Apparently he was at a local laundromat and a friend found him significantly altered. This lasted several minutes. No seizure activity seen. Police were summoned, and upon their arrival he was somnolent and confused. By the time of ER arrival he was awake and talking but significantly altered, agitated, and moving constantly on the bed. He needed multiple doses of ativan in the ER to remain comfortable. He apparently vomited 1 time. He was been hypoxic, intermittently requiring oxygen. By report he was recently incarcerated in [facility] but he states that was in October 2019. He reports nasal congestion for 3 days and chronic cough for months but states "I don't feel sick." He has a roommate but that person has not been ill. The roommate apparently cleans laundromats and he usually goes with that person to help. During my evaluation he was constantly rubbing his hair and face, jerking on the bed, was restless, and could not sit still. He asked me "do you think I have bipolar?" Principal Diagnosis narcotic overdose Discharge Exam Constitutional: in no distress Eyes: + anicteric sclerae and PERRL ENMT: Mouth: + oropharynx abnormality (significant erythema of palate and posterior throat) Neck: trachea midline, no thyromegaly Respiratory: normal respiratory effort, lungs clear to auscultation no respiratory distress Cardiovascular: Rate/Rhythm: regular rhythm and + tachycardic Heart Sounds: normal S1 and normal S2; no murmur Vessels: posterior tibial pulses present and dorsalis pedis pulses present; no JVD Extremities: no edema Gastrointestinal (Abdomen): normal bowel sounds, soft, nontender, no hepatosplenomegaly Musculoskeletal: no cyanosis or clubbing, extremities motor strength 5/5 Skin: no rashes, warm and dry scattered scratch liao on arms; diaphoretic Neurologic: myoclonic jerking intermittently; brisk reflexes b/l arms/legs; restless; altered mental status; strength 5/5 x 4 exts Psychiatric: Orientation: oriented to person; + not alert, + not oriented to place and + not oriented to time Discharge Data Allergies Allergy/AdvReac Type Severity Reaction Status Date / Time Fish Containing Products Allergy throat Verified 05/15/20 15:59 swells Consultations 05/14/20 09:01 ED Decision to Admit Stat 05/14/20 12:16 Consult Case Management - Discharge Planning Routine Consult Deal Architect Routine Ordered Studies 05/14/20 05:45 CT head/brain wo con Urgent 05/14/20 07:38 CT angio chest PE protocol Stat Hospital Course (1) Toxic encephalopathy: presentation is due to polysubstance abuse / ingestion as tox screen shows TCH, meth, MDMA, and opiates. resolved. Patient is not interested in rehab. 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 (2) Polysubstance abuse: As noted above. History of narcotic abuse in the past per records. History of past incarceration - exact dates uncertain. PDMP does not show any prescriptions for controlled substances. No benzos on tox screen. Supportive care. (3) Hypoxia: Patient falls asleep easily during the exam, and with such he desaturates. Hypoventilation in setting of altered mental status. He could have aspirated during his altered MS and recent emesis spell but lungs are clear and CTA is negative (although are there bibasilar infiltrates?). COVID-19 negative. Continue to monitor; provide NC O2 as needed. (4) EPIFANIO (acute kidney injury): Hydrate, repeat BMP am. Suspect due to ingestion and/or poor oral intake. (5) History of narcotic addiction: Noted. (6) Transaminitis: In light of illicit drug use strongly consider HepB and HepC testing. Could be from his drug use. Recheck LFTs am. COVID-19 testing negative. (7) DVT prophylaxis: lovenox 40mg daily admitting patient to ICU care d/w Dr Quezada Total Time Total Time Spent Total Time Spent (In Minutes): 32 Total Time Includes: Examination of the Patient, Discharge Planning and Medication Reconciliation Discharge Plan Discharge Items Patient Disposition: Home - Self-Care Reason For Visit: POLYSUBSTANCE INGESTION,TOXIC ENCEPHALOPATHY Discharge Diagnosis: Poysubstance abuse Activity: Resume your previous activity Non-emergency contact: Primary Care Provider Call non-emergency contact if: you have any medication questions Follow-up/Referrals: PCP,NO [Primary Care Provider] - Diet: Regular Addtl Attending Provider Instructions: You have been hospitalized for an acute medical problem. During your stay at [facility], we have made an effort to correct the problem that brought you to the hospital while keeping you as comfortable as possible. Medications were used to bring your condition under control and your discharge instructions will include directions for any medications you should take after leaving the hospital. Please make sure you see your Primary Care Provider as part of your follow up plan. Recommend you seek rehab for your drug abuse problem. Pending Studies at Discharge: No Stand-Alone Forms: My [facility], Smoking Cessation Medications and DC Order Prescriptions: No Action Narcan 4 mg/actuation spray,non-aerosol 4 mg intranasal DIRECTED PRN (Reason: opioid overdose) Qty: 2 RF: 2 cyclobenzaprine [Flexeril] 10 mg Tablet 10 mg PO HS PRN (Reason: Sleep) RF: 0 Discharge Orders: Discharge Order (Routine); Ordered 05/15/20 Ordered By: Drew Massey Admission Data Admit Date/Time: 05/14/20 10:17 Attending Provider: Drew Massey Admit Provider: Leon Diaz Primary Care Provider: PCP,PA Other Providers: Leon Diaz ; Qasim Quezada Other Interventions: Discharge Summary Assessment (RN) Last Done: 05/15/20 12:54 Coding Level of Care Code D/C Day Management >30 mins Diagnoses Toxic encephalopathy G92 Polysubstance abuse F19.10 Hypoxia R09.02 EPIFANIO (acute kidney injury) N17.9 History of narcotic addiction F11.21 Transaminitis R74.01 DVT prophylaxis Z29.9 Time Spent (min) 32
== END 2020-05-15 13:10 | disposition home or self-care (01) | DRG 917 ==
LOC: ED 05:36 → SUATTDRO 10:17 → 1E 10:17